=== PATIENT | female | born 2000 | race Caucasian/White ===

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

== ENCOUNTER 2019-08-17 16:30 | Emergency (ER) | payer OTHER ==
[~2019-08-17] VITALS: Ht 177.8 cm; Wt 92.3 kg
[2019-08-17] MEDS ORDERED: POTASSIUM CHLORIDE 10 MEQ SR TABLET PO ONE (17:30)
[2019-08-17 17:50] LABS: BASO # 0.1 10^3/uL (0.0-0.2); EOS # 0.1 10^3/uL (0.0-0.5); EOS % 1.5 % (0.0-3.0); HEMATOCRIT 38.4 % (36.0-47.0); LYMPH # 1.9 10^3/uL (1.5-5.0); LYMPH % 27.1 % (24.0-44.0); MEAN CORPUSCULAR HGB CONC 33.9 g/dl (32.0-36.5); MEAN CORPUSCULAR VOLUME 85.7 fl (80.0-96.0); MONO # 0.6 10^3/uL (0.0-0.8); MONO % 7.7 % (0.0-5.0); NEUTROPHILS # 4.4 10^3/uL (1.5-8.5); NEUTROPHILS % 62.1 % (36.0-66.0); PLATELET COUNT, AUTOMATED 396 10^3/uL (150-450); RED BLOOD COUNT 4.48 10^6/uL (4.00-5.40); WHITE BLOOD COUNT 7.1 10^3/uL (4.0-10.0)
[2019-08-17 18:23] LABS: CK-MB VALUE MASS 1.2 NG/ML (<3.6); CPK CREATINE PHOSPHOKINASE 116 U/L (26-192); MB/CK RELATIVE INDEX 1.03 (< OR =4); TROPONIN I < 0.02 NG/ML (< 0.10)
[2019-08-17 18:27] VITALS: BP 122/68
--- NOTE | 2019-08-17 18:35 | ECGEPIP ---
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
--- NOTE | 2019-08-17 19:45 | REP ---
Chest x-ray: Two views. History: Dyspnea and cough . Comparison study: August 13, 2013 . Findings: The lungs are well inflated and free of infiltrate. The pleural angles are sharp. The heart size is normal. Pulmonary vasculature is not increased. No significant bony abnormality is seen. Impression: Negative chest x-ray. Electronically Signed by Tj Rojas MD 08/17/2019 07:37 P
== END 2019-08-17 18:30 | disposition home or self-care (01) ==
LOC: M ED 16:30 → EDBD 16:30 → M ED 18:30
DX: R06.00 Dyspnea, unspecified (principal); E87.6 Hypokalemia; M32.9 Systemic lupus erythematosus, unspecified; M06.9 Rheumatoid arthritis, unspecified; F41.9 Anxiety disorder, unspecified; F17.210 Nicotine dependence, cigarettes, uncomplicated

== ENCOUNTER → 2019-10-22 | Outpatient (REF) | payer OTHER ==
[2019-10-22 15:39] LABS: HEMOGLOBIN 13.9 g/dl (12.0-15.5); MEAN CORPUSCULAR HGB CONC 33.9 g/dl (32.0-36.5); MEAN CORPUSCULAR VOLUME 88.4 fl (80.0-96.0); PLATELET COUNT, AUTOMATED 433 10^3/uL (150-450); RED BLOOD COUNT 4.64 10^6/uL (4.00-5.40); WHITE BLOOD COUNT 11.4 10^3/uL (4.0-10.0)
[2019-10-22 16:10] LABS: TOTAL PROTEIN,RANDOM URINE 24.4 MG/DL (0.0-12.0)
[2019-10-22 16:11] LABS: ALT/SGPT 18 U/L (12-78); BILIRUBIN,TOTAL 0.3 MG/DL (0.2-1.0); CREATININE FOR GFR 0.52 MG/DL (0.55-1.30); LDH LACTATE DEHYDROGENASE 169 U/L (84-246); URIC ACID 5.5 MG/DL (2.6-6.0)
[2019-10-22 16:32] LABS: HEPATITIS B SURFACE ANTIGEN NEGATIVE (NEGATIVE)
[2019-10-22 17:00] LABS: HIV 1&2 SCREEN CENTAUR NEGATIVE (NEGATIVE)
[2019-10-22 17:05] LABS: CHLAMYDIA DNA AMPLIFICATION NEGATIVE (NEGATIVE); GC DNA AMPLIFICATION NEGATIVE (NEGATIVE)
== END ==
LOC: M PLALAB 13:45
PROVIDERS: ATTEND Advanced Practice Midwife
DX: O99.331 Smoking (tobacco) complicating pregnancy, first trimester (principal); F17.200 Nicotine dependence, unspecified, uncomplicated

== ENCOUNTER → 2019-11-19 | Outpatient (REF) | payer OTHER ==
[2019-11-19 19:33] LABS: CHLAMYDIA DNA AMPLIFICATION NEGATIVE (NEGATIVE); GC DNA AMPLIFICATION NEGATIVE (NEGATIVE)
== END ==
LOC: M SFHCWAGY 16:52
PROVIDERS: ATTEND Advanced Practice Midwife
DX: Z11.3 Encounter for screening for infections with a predominantly sexual mode of transmission (principal)

== ENCOUNTER → 2019-12-18 | Outpatient (REF) | payer OTHER ==
[2019-12-18 14:26] LABS: ALBUMIN 3.2 GM/DL (3.2-5.2); ALT/SGPT 13 U/L (12-78); BILIRUBIN,TOTAL 0.2 MG/DL (0.2-1.0); BLOOD UREA NITROGEN 7 MG/DL (7-18); CALCIUM LEVEL 9.5 MG/DL (8.5-10.1); CARBON DIOXIDE LEVEL 22 MEQ/L (21-32); CHLORIDE LEVEL 109 MEQ/L (98-107); CREATININE FOR GFR 0.52 MG/DL (0.55-1.30); GLUCOSE, FASTING 81 MG/DL (70-100); SODIUM LEVEL 140 MEQ/L (136-145)
[2019-12-21 17:07] LABS: CARDIOLIPIN IGA ANTIBODY <9 APL U/mL (0-11); CARDIOLIPIN IGG ANTIBODY <9 GPL U/mL (0-14); CARDIOLIPIN IGM ANTIBODY <9 MPL U/mL (0-12); SSA SJOGRENS A 0.3 AI (0.0-0.9); SSB SJOGRENS B <0.2 AI (0.0-0.9)
== END ==
LOC: M PLALAB 11:47
PROVIDERS: ATTEND Advanced Practice Midwife
DX: M32.9 Systemic lupus erythematosus, unspecified (principal); O99.89 Other specified diseases and conditions complicating pregnancy, childbirth and the puerperium

== ENCOUNTER → 2020-01-20 | Outpatient (CLI) | payer OTHER ==
--- NOTE | 2020-03-05 14:44 | REP ---
OBSTETRIC SONOGRAPHY HISTORY: Supervision of for anatomy. This report was delayed due to a protracted episode of network disruption experienced by this facility. FINDINGS: Scanning through the gravid uterus demonstrates a viable single intrauterine gestation in a cephalic lie. Placenta is anterior grade 1 without evidence of placenta previa or abruption. Amniotic fluid is subjectively normal. Closed cervical length measured transabdominally is 4.1 cm. There is a 3.1 cm cystic area in the maternal left ovary. heart rate 150 beats per minute. No abnormality is observed. The following anatomic structures are identified and felt to be unremarkable: Cisterna magna, cavum septum, thalami, spine, left-sided stomach, kidneys and bladder, four chamber heart with left and right ventricular outflow tract views, three-vessel cord, abdominal wall cord insertion, upper and lower extremities, face and lips. BIOMETRY CHART: BPD 50 mm 21 weeks 2 days Head Circumference 177 mm 20 weeks 2 days Abdominal Circumference 159 mm 21 weeks 1 day Femur Length 32 mm 20 weeks 1 day Humeral Length 31 mm 20 weeks 3 days Estimated Weight 361 g 76th percentile IMPRESSION: Single live intrauterine at 20 weeks 5 days by todays composite criteria. Estimated date of delivery (LUIGI) by todays sonography 06/03/2020. MTDD
== END ==
LOC: M WHC 13:32
PROVIDERS: ATTEND Advanced Practice Midwife
DX: Z34.82 Encounter for supervision of other normal pregnancy, second trimester (principal); Z3A.20 20 weeks gestation of pregnancy

== ENCOUNTER → 2020-03-02 | Outpatient (CLI) | payer OTHER ==
[2020-03-02 17:20] LABS: HEMATOCRIT 35.5 % (36.0-47.0); HEMOGLOBIN 11.8 g/dl (12.0-15.5); MEAN CORPUSCULAR HEMOGLOBIN 31.3 pg (27.0-33.0); MEAN CORPUSCULAR HGB CONC 33.2 g/dl (32.0-36.5); MEAN CORPUSCULAR VOLUME 94.2 fl (80.0-96.0); PLATELET COUNT, AUTOMATED 377 10^3/uL (150-450); RED BLOOD COUNT 3.77 10^6/uL (4.00-5.40); WHITE BLOOD COUNT 11.5 10^3/uL (4.0-10.0)
== END ==
LOC: M PLALAB 14:01
PROVIDERS: ATTEND Advanced Practice Midwife
DX: Z34.82 Encounter for supervision of other normal pregnancy, second trimester (principal); Z36.89 Encounter for other specified antenatal screening

== ENCOUNTER → 2020-03-17 | Outpatient (REF) | payer OTHER ==
[2020-03-17 16:50] LABS: HEMATOCRIT 36.7 % (36.0-47.0); HEMOGLOBIN 12.2 g/dl (12.0-15.5); MEAN CORPUSCULAR HEMOGLOBIN 31.2 pg (27.0-33.0); MEAN CORPUSCULAR HGB CONC 33.2 g/dl (32.0-36.5); MEAN CORPUSCULAR VOLUME 93.9 fl (80.0-96.0); PLATELET COUNT, AUTOMATED 370 10^3/uL (150-450); RED BLOOD COUNT 3.91 10^6/uL (4.00-5.40); WHITE BLOOD COUNT 12.6 10^3/uL (4.0-10.0)
[2020-03-17 17:18] LABS: ALT/SGPT 7 U/L (12-78); BILIRUBIN,TOTAL 0.2 MG/DL (0.2-1.0); CREATININE FOR GFR 0.45 MG/DL (0.55-1.30); LDH LACTATE DEHYDROGENASE 127 U/L (84-246); URIC ACID 4.3 MG/DL (2.6-6.0)
[2020-03-17 17:59] LABS: TOTAL PROTEIN,RANDOM URINE 13.6 MG/DL (0.0-12.0)
== END ==
LOC: M PLALAB 13:59
PROVIDERS: ATTEND Advanced Practice Midwife
DX: O16.3 Unspecified maternal hypertension, third trimester (principal)

== ENCOUNTER → 2020-04-14 | Outpatient (CLI) | payer OTHER ==
--- NOTE | 2020-04-14 17:17 | REP ---
INDICATION: GROWTH. COMPARISON: 01/20/2020. TECHNIQUE: Real-time sonographic evaluation of the gravid uterus performed. FINDINGS: Estimated gestational age is32 weeks 1 day, EDC 06/08/2020. Today's measurements indicate appropriate growth. Presentation: Cephalic Placenta anterior, grade 2, without evidence of placenta previa. heart rate is recorded at 153 beats per minute. Amniotic fluid is subjectively normal. YVON 14.8 (normal range 8.6-24.2). Closed cervical length is measured at 3.2 cm. Biometry chart: BPD: 85 mm, 34 weeks 2 days, 82nd percentile. HC: 303 mm, 33 weeks 4 days, 73rd percentile AC: 295 mm, 33 weeks 3 days, 70th percentile Femur length: 61 mm, 31 weeks 6 days, 46th percentile HC to AC ratio: 1.03, normal range 0.95-1.14. Estimated weight: 2117g, 71st percentile. IMPRESSION: Viable single intrauterine gestation as above. <Electronically signed by German Brush > 04/14/20 [id number]
== END ==
LOC: M WHC 15:42
PROVIDERS: ATTEND Obstetrics & Gynecology
DX: Z36.4 Encounter for antenatal screening for fetal growth retardation (principal); O99.113 Other diseases of the blood and blood-forming organs and certain disorders involving the immune mechanism complicating pregnancy, third trimester; Z3A.32 32 weeks gestation of pregnancy

== ENCOUNTER → 2020-05-12 | Outpatient (REF) | payer OTHER | LOC: M PLALAB 15:30 | PROVIDERS: ATTEND Obstetrics & Gynecology | DX: Z3A.37 37 weeks gestation of pregnancy (principal) ==

== ENCOUNTER → 2020-05-12 | Outpatient (REF) | payer OTHER | LOC: M SFHCWAGY 16:47 | PROVIDERS: ATTEND Obstetrics & Gynecology | DX: Z3A.37 37 weeks gestation of pregnancy (principal) ==

== ENCOUNTER 2020-05-13 20:12 | Outpatient (CLI) | payer OTHER ==
[~2020-05-13] VITALS: Ht 180.3 cm; Wt 100.9 kg
[~2020-05-13 20:12] MED LIST changes: -ASPI81CH33 PO
[2020-05-13 20:51] VITALS: BP 141/81
== END 2020-05-13 22:33 | disposition home or self-care (01) ==
LOC: M LDO 20:12
PROVIDERS: ATTEND Obstetrics & Gynecology
DX: O47.03 False labor before 37 completed weeks of gestation, third trimester (principal); Z3A.36 36 weeks gestation of pregnancy

== ENCOUNTER → 2020-05-13 | Outpatient (CLI) | payer OTHER ==
[~2020-05-13] MED LIST changes: +ASPI81CH33 PO
--- NOTE | 2020-05-14 07:12 | REP ---
INDICATION: HYPERTENSION,GROWTH,BPP COMPARISON: 04/14/2020 TECHNIQUE: Transabdominal obstetrical ultrasound with color Doppler evaluation. FINDINGS: Examination demonstrates a single live intrauterine in cephalic presentation. motion is identified by technologist. Placenta is noted anterior and grade 3 without evidence for placenta previa or abruption. Amniotic fluid volume is normal. Cervix measures 3.1 cm in length and appears closed.. Gestational age by LMP 36 weeks 2 days with LUIGI 06/08/2020. Gestational age by current measurements 36 weeks 6 days with LUIGI 06/04/2020. FHR equals 146 beats per minute. BPD: 9.3 sent there is 37 weeks 4 days HC: 33.5 cm 30 weeks 2 days AC: 32.3 cm 36 weeks 2 days FL: 7.0 cm 36 weeks 0 days HL: 6.3 cm 36 weeks 2 days HC/AC: 1.04 Estimated weight 2965 grams (59thpercentile). YVON: 12.6 cm (7.6-24.8) Biophysical profile score: 8/8 Umbilical artery 1 SD ratio: 1.97 (1.63-3.49) Umbilical artery 2 SD ratio: 2.50 IMPRESSION: Single live advanced gestation in cephalic presentation demonstrating appropriate growth, estimated weight, amniotic fluid index, and biophysical profile. <Electronically signed by Sebastian Trejo > 05/14/20 [id number]
== END ==
LOC: M WHC 08:21
PROVIDERS: ATTEND Obstetrics & Gynecology
DX: O16.3 Unspecified maternal hypertension, third trimester (principal); Z3A.36 36 weeks gestation of pregnancy

== ENCOUNTER 2020-05-18 20:21 | Inpatient (IN) | payer OTHER ==
[~2020-05-18] VITALS: Ht 180.3 cm; Wt 102.1 kg
[2020-05-18 20:48] VITALS: BP 128/76
[2020-05-18] MEDS ORDERED: PRENTAB9 PO (21:14)
[2020-05-18] MEDS ORDERED: ASPI81CH33 PO (21:14)
--- NOTE | 2020-05-18 21:18 | HPEPDOC ---
Obstetrical History & Physical General Date of Admission May 18, 2020 at 20:21 History of Present Illness 20 yo at 37 0/7 weeks by 7 week ultrasound presents for labor induction due to gestational hypertension. She had preeclampsia with her previous pregancy. Age: 20 : 2 Term: 1 Pre-term: 0 Abortions: 0 Livin Care Care: Good Care Dating Final EDC: Jun 08, 2020 Final EDC by: 1st trimester (US) EGA at Admission: 37 Past Medical History Past Obstetrical History : Past Obstetrical History: Multigravida Past Medical History Medical History OB hx: 38 week x 1 complicated by preeclampsia med hx: SLE RA Anxiety/depression Surgical History: Denies/None Family History Significant Family History: No pertinent family hx Social History Marital Status: Family situation: Spouse/partner home Psychosocial History: Anxiety, Depression * Smoker: current smoker Alcohol: Denies Drugs: denies Allergies Coded Allergies: No Known Allergies (Unverified , 05/23/18) Medications No Active Prescriptions or Reported Meds Physical Examination Physical Examination GENERAL: Alert and oriented times three. BREAST: . ABDOMEN: Gravid and non-tender to touch. FETUS: Is vertex (VTX) by sterile vaginal examination (SVE), fetus is vertex (VTX) by [place]ley. HEART RATE: Regular rate and rhythm. LUNGS: Clear to auscultation (CTA). EXTREMITIES: No edema. No clonus. Deep tendon reflexes (DTRs) + . Laboratory Data 24H LABS Laboratory Tests 2 05/18/20 20:32: Serology Scanned Report Hepatitis B Testing Pertinent Laboratoy Data Blood Type: O+ HIV: Negative Hepatitis B: Negative Hepatitis C: Negative Rapid Plasma Reagin: Immune Rubella: Immune Group B Streptococcus: Negative Vaginal Examination Dilation: 1cm Effacement: 50% Station: -2 Cervical Consistency: Medium Cervical Position: Posterior Presentation: Cephalic presentation Assessment Variability: Moderate Accelerations: Positive Decelerations: None Tocometer Frequency: irregular Assessment/Plan Assessment Pt is a 20-year-old (G)2 para (P)1 at 37+0 weeks by 7-week ultrasound presents to Labor and Delivery for induciton due to gestational hypertension. Plan Admit and orient. 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 Group B Streptococcus (GBS) negative. Counseled on Pitocin and induction of labor (IOL). Anticipate normal spontaneous delivery (. C-S as appropriate. REDD CANO MD May 18, 2020 21:17
[2020-05-18] MEDS: miSOPROStol 50 MCG 1/2 TAB (S0191) SL SCH (21:22)
[2020-05-18 21:41] LABS: HEMATOCRIT 34.4 % (36.0-47.0); MEAN CORPUSCULAR HEMOGLOBIN 31.3 pg (27.0-33.0); MEAN CORPUSCULAR HGB CONC 34.9 g/dl (32.0-36.5); MEAN CORPUSCULAR VOLUME 89.8 fl (80.0-96.0); PLATELET COUNT, AUTOMATED 375 10^3/uL (150-450); RED BLOOD COUNT 3.83 10^6/uL (4.00-5.40); WHITE BLOOD COUNT 12.3 10^3/uL (4.0-10.0)
[2020-05-18 22:21] VITALS: BP 121/79
[2020-05-19] VITALS (34 sets, daily range): BP systolic 111–195; BP diastolic 60–101
[2020-05-19] MEDS: miSOPROStol 50 MCG 1/2 TAB (S0191) SL SCH ×2 (01:42→05:51)
[2020-05-19] MEDS ORDERED: ACETAMINOPHEN 500 MG TAB PO PRN (08:15)
[2020-05-19] MEDS ORDERED: OXYTOCIN DRIP 30 UNITS in IV 1 EA IV SCH (10:00)
[2020-05-19] MEDS: LR 1,000 ML IV SCH ×2 (10:13→18:29)
[2020-05-19] MEDS ORDERED: PROMETHAZINE INJ 25 MG/ML VIAL (J2550) IV ONE (19:30)
[2020-05-19] MEDS ORDERED: BUTORPHANOL 2 MG/ML INJ (J0595) IV ONE (19:30)
[2020-05-19] MEDS ORDERED: FENTANYL 2MCG/ML ROPIVACAINE 0.2% IN 0.9% NACL 100ML IVBAG As Ordered ONE (23:13)
[2020-05-19] MEDS ORDERED: ONDANSETRON 4MG/2ML VIAL IV PRN (23:50)
[2020-05-19] MEDS ORDERED: FENTANYL/ROPIVACAINE/NACL BAG 100 ML EPIDURAL SCH (23:50)
[2020-05-19] MEDS ORDERED: EPIDURAL COMMENT XX SCH (23:50)
[2020-05-19] MEDS ORDERED: NALOXONE INJ 0.4MG/1ML VIAL (J2310 PER 1MG) IV PRN (23:50)
[2020-05-19] MEDS ORDERED: EPIDURAL/PCA KEYS XX PRN (23:50)
[2020-05-19] MEDS ORDERED: LACTATED RINGER'S 1000 ML IV PRN (23:50)
[2020-05-19] MEDS ORDERED: ePHEDrine SULFATE 25 MG/5 ML(5MG/ML) SYRINGE IV PRN (23:50)
[2020-05-19] MEDS ORDERED: diphenhydrAMINE 50MG/ML VIAL (J1200) IV PRN (23:50)
[2020-05-19] MEDS ORDERED: REFRIGERATOR IV KEYS XX PRN (23:50)
[2020-05-20 00:04] VITALS: BP 144/85
[2020-05-20 00:11] VITALS: BP 135/77
[2020-05-20 00:15] VITALS: BP 138/85
[2020-05-20] MEDS ORDERED: OXYTOCIN DRIP 30 UNITS in IV 1 EA IV SCH (01:39)
[2020-05-20] MEDS ORDERED: IBUPROFEN 600MG TAB PO PRN (01:45)
[2020-05-20] MEDS ORDERED: DOCUSATE SODIUM 100MG CAPSULE PO PRN (01:45)
[2020-05-20] MEDS ORDERED: BENZOCAINE 20% HEMORRHOIDAL OINTMENT 28GM TUBE TOP PRN (01:45)
[2020-05-20] MEDS ORDERED: MEASLES,MUMPS,RUBELLA VACCINE INJ (MMR-II) (90707) SC SCH (01:45)
[2020-05-20] MEDS ORDERED: ACETAMINOPHEN TAB 650MG DOSE (2X325MG) PO PRN (01:45)
[2020-05-20] MEDS ORDERED: IBUPROFEN 800 MG TAB PO PRN (01:45)
[2020-05-20] MEDS ORDERED: ACETAMINOPHEN 500 MG TAB PO PRN (01:45)
[2020-05-20] MEDS ORDERED: RHOGAM 300 MCG (1500 IU) INJ (J2790) IM SCH (01:45)
[2020-05-20 03:05] VITALS: BP 135/74
[2020-05-20 06:00] VITALS: BP 127/59
--- NOTE | 2020-05-20 08:08 | DN ---
DELIVERY NOTE DATE OF SERVICE: 05/20/2020 Lucina is a 20-year-old, 2, para 2-0-0-2 now, who is admitted to labor and delivery for induction of labor due to gestational hypertension. Misoprostol, Cook's catheter, and IV Pitocin was used and labor did ensue. The patient utilized IV pain medications and an epidural for her labor coping. She reached full dilation at 0056 hours. She pushed to a normal spontaneous vaginal delivery of a live male in occiput anterior (OA) position with restitution to left occiput anterior (LOT) position at 0106 hours. There was no nuchal cord. The shoulders delivered with gentle downward traction and the corpus immediately followed. The was placed on the maternal abdomen crying and active. Mouth and nares were bulb suctioned. The cord was clamped times two once pulsations ceased and cut by the father of the baby under my direction. A spontaneous expulsion of an intact placenta with a three-vessel cord by Echols mechanism was at 0120 hours. Uterine hemostasis achieved with IV Pitocin. Rapid infusion and uterine fundal massage. Estimated blood 300 mL. Perineum and vagina inspected, noted to be intact. male weighed 3170 grams, 7 pounds 0 ounces, scores 8 and 9. Mom is going to breastfeed. The family have named their son Isaiah. At the close of delivery, lap counts and instrument counts were correct and verified.
[2020-05-20] MEDS: PRENATAL VITAMINS CHEWABLE TABLET PO SCH (08:48)
[2020-05-20 18:26] VITALS: BP 142/70
[2020-05-21 06:00] VITALS: BP 142/82
[2020-05-21] MEDS: PRENATAL VITAMINS CHEWABLE TABLET PO SCH (08:00)
[2020-05-21 17:46] VITALS: BP 151/90
--- NOTE | 2020-05-21 20:27 | IPNPDOC ---
Text Note Date of Service The patient was seen on 05/21/20. NOTE This note was created in error. VS,Fishbone, I+O VS, Fishbone, I+O Vital Signs Date Time Temp Pulse Resp B/P (MAP) Pulse Ox O2 Delivery O2 Flow Rate FiO2 05/21/20 17:46 97.8 116 20 151/90 (110) 05/19/20 07:52 99 Room Air Soniya Cartagena CNM May 21, 2020 20:23
[2020-05-22 06:00] VITALS: BP 132/82
[2020-05-22] MEDS: PRENATAL VITAMINS CHEWABLE TABLET PO SCH (10:18)
== END 2020-05-22 12:10 | disposition home or self-care (01) | DRG 560 ==
LOC: EEVIPCON 20:21 → M LDI 20:21 → M OBS 05-20 03:03
PROVIDERS: ADMIT Specialist; ATTEND Advanced Practice Midwife
PROC: 3E0P7GC Introduction of Other Therapeutic Substance into Female Reproductive, Via Natural or Artificial Opening (ICD-10-PCS; 2020-05-18)
PROC: 10E0XZZ Delivery of Products of Conception, External Approach (ICD-10-PCS; principal; 2020-05-20)
DX: O13.4 Gestational [pregnancy-induced] hypertension without significant proteinuria, complicating childbirth (principal); Z3A.37 37 weeks gestation of pregnancy; Z37.0 Single live birth

== ENCOUNTER 2020-07-04 19:55 | Emergency (ER) | payer OTHER ==
[~2020-07-04] VITALS: Ht 182.9 cm; Wt 97.6 kg
[~2020-07-04 19:55] MED LIST changes: +ASPI81CH33 PO
[2020-07-04] MEDS ORDERED: NS 1,000 ML IV ONE (21:00)
[2020-07-04 21:22] LABS: BASO # 0.1 10^3/uL (0.0-0.2); EOS # 0.3 10^3/uL (0.0-0.5); EOS % 3.8 % (0.0-3.0); HEMATOCRIT 40.7 % (36.0-47.0); HEMOGLOBIN 13.1 g/dl (12.0-15.5); LYMPH # 2.2 10^3/uL (1.5-5.0); LYMPH % 26.1 % (24.0-44.0); MEAN CORPUSCULAR HEMOGLOBIN 29.5 pg (27.0-33.0); MEAN CORPUSCULAR HGB CONC 32.2 g/dl (32.0-36.5); MEAN CORPUSCULAR VOLUME 91.7 fl (80.0-96.0); MONO # 0.4 10^3/uL (0.0-0.8); MONO % 4.9 % (0.0-5.0); NEUTROPHILS # 5.3 10^3/uL (1.5-8.5); NEUTROPHILS % 63.6 % (36.0-66.0); PLATELET COUNT, AUTOMATED 369 10^3/uL (150-450); RED BLOOD COUNT 4.44 10^6/uL (4.00-5.40); WHITE BLOOD COUNT 8.4 10^3/uL (4.0-10.0)
[2020-07-04 21:50] LABS: CK-MB VALUE MASS < 1.0 NG/ML (<3.6); CPK CREATINE PHOSPHOKINASE 105 U/L (26-192); MB/CK RELATIVE INDEX 0.95 (< OR =4); TROPONIN I < 0.02 NG/ML (< 0.10)
[2020-07-04] MEDS ORDERED: ISOVUE-370 76% 100ML VIAL As Ordered ONE (22:10)
--- NOTE | 2020-07-04 22:41 | REPVR ---
PROCEDURE INFORMATION: Exam: CT Angiography Chest With Contrast Exam date and time: 07/04/2020 10:09 PM Age: 20 years old Clinical indication: Chest pain; Additional info: Chest pain, SOB post R/O pe TECHNIQUE: Imaging protocol: Computed tomographic angiography of the chest with intravenous contrast. 3D rendering (Not supervised by radiologist): MIP and/or 3D reconstructed images were created by the technologist. Radiation optimization: All CT scans at this facility use at least one of these dose optimization techniques: automated exposure control; mA and/or kV adjustment per patient size (includes targeted exams where dose is matched to clinical indication); or iterative reconstruction. Contrast material: ISOVUE 370; Contrast volume: 75 ml; Contrast route: INTRAVENOUS (IV); COMPARISON: MN Chest, 2 view PA, Lat 08/17/2019 5:10 PM FINDINGS: No focal pulmonary artery filling defect to suggest acute pulmonary embolus. No thoracic aortic aneurysm or dissection. Residual thymic tissue is present in the anterior mediastinum. No enlarged mediastinal lymph nodes. No pleural effusion or pneumothorax. Pulmonary vascular/interstitial pattern does not suggest active pulmonary edema. No overt cardiac enlargement or abnormal volume of pericardial fluid. No suspicious lung mass or air space process. No central endobronchial lesion. Bony structures show no acute fracture or destructive process. No asymmetric abnormality of the extrathoracic soft tissues. IMPRESSION: No evidence of acute pulmonary embolus. No other acute or concerning focal intrathoracic abnormality. Electronically signed by: Cristiano Aldana On 07/04/2020 22:40:54 PM
[2020-07-04 23:10] VITALS: BP 140/82
--- NOTE | 2020-07-05 07:05 | ECGEPIP ---
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 Order Number: [id number] Reading MD: Renny Quesada Measurements Intervals [place] Rate: 70 P: 34 DC: 143 QRS: 26 QRSD: 98 T: 5 QT: 384 QTc: 415 Interpretive Statements SINUS RHYTHM WITH SINUS ARRHYTHMIA POSSIBLE RIGHT VENTRICULAR CONDUCTION DELAY NONSPECIFIC T WAVE ABNORMALITY(S) SIMILAR TO 08/17/19 Electronically Signed on 07-05-2020 7:05:00 EST by Renny Quesada
== END 2020-07-04 23:15 | disposition home or self-care (01) ==
LOC: M ED 19:55
DX: R07.89 Other chest pain (principal); F41.9 Anxiety disorder, unspecified; I49.9 Cardiac arrhythmia, unspecified; R94.31 Abnormal electrocardiogram [ECG] [EKG]; F33.9 Major depressive disorder, recurrent, unspecified; F17.200 Nicotine dependence, unspecified, uncomplicated; Z83.2 Family history of diseases of the blood and blood-forming organs and certain disorders involving the immune mechanism
CPT/HCPCS: 71275; 80047; 82550; 82553; 84702; 85025; 93005; 96360; 96361; 99284; Q9967

== ENCOUNTER → 2020-08-24 | Outpatient (REF) | payer OTHER | LOC: M SFHCWAGY 12:46 | PROVIDERS: ATTEND Advanced Practice Midwife | DX: N34.3 Urethral syndrome, unspecified (principal); Z11.3 Encounter for screening for infections with a predominantly sexual mode of transmission ==

== ENCOUNTER 2021-09-23 19:07 | Emergency (ER) | payer OTHER ==
[~2021-09-23] VITALS: Ht 180.3 cm; Wt 106.9 kg
[2021-09-23] MEDS ORDERED: BACTRIM 160MG/800MG DS TAB PO ONE (20:50)
[2021-09-23] MEDS ORDERED: BACT800T5 PO (20:51)
[2021-09-23 21:16] VITALS: BP 120/68
== END 2021-09-23 21:18 | disposition home or self-care (01) ==
LOC: M ED 19:07
DX: N61.1 Abscess of the breast and nipple (principal); F33.9 Major depressive disorder, recurrent, unspecified; F41.9 Anxiety disorder, unspecified; M32.9 Systemic lupus erythematosus, unspecified; F12.20 Cannabis dependence, uncomplicated; F17.210 Nicotine dependence, cigarettes, uncomplicated

== ENCOUNTER → 2023-07-02 | Outpatient (CLI) | payer OTHER ==
[~2023-07-02] MED LIST changes: +BACT800T5 PO
[2023-07-02 09:42] LABS: BASO # 0.1 10^3/uL (0.0-0.2); BASO % 0.6 % (0.0-1.0); EOS # 0.4 10^3/uL (0.0-0.5); EOS % 4.5 % (0.0-3.0); HEMATOCRIT 41.3 % (36.0-47.0); LYMPH # 2.7 10^3/uL (1.5-5.0); LYMPH % 32.4 % (24.0-44.0); MEAN CORPUSCULAR HEMOGLOBIN 29.6 pg (27.0-33.0); MEAN CORPUSCULAR HGB CONC 33.9 g/dl (32.0-36.5); MEAN CORPUSCULAR VOLUME 87.3 fl (80.0-96.0); MONO # 0.4 10^3/uL (0.0-0.8); MONO % 4.8 % (2.0-8.0); NEUTROPHILS # 4.7 10^3/uL (1.5-8.5); NEUTROPHILS % 56.5 % (36.0-66.0); PLATELET COUNT, AUTOMATED 347 10^3/uL (150-450); RED BLOOD COUNT 4.73 10^6/uL (4.00-5.40); WHITE BLOOD COUNT 8.3 10^3/uL (4.0-10.0)
[2023-07-02 09:57] LABS: ERYTHROCYTE SEDIMENTATION RATE 34 mm/hr (0-20)
[2023-07-02 10:06] LABS: URIC ACID 7.8 MG/DL (3.1-7.8)
[2023-07-02 10:09] LABS: ALBUMIN 3.9 G/DL (3.2-5.2); ALKALINE PHOSPHATASE 81 U/L (46-116); ALT/SGPT 23 U/L (7.0-40); AST/SGOT 26 U/L (<34); BILIRUBIN,TOTAL 0.3 MG/DL (0.3-1.2); BLOOD UREA NITROGEN 12 MG/DL (9-23); CALCIUM LEVEL 9.5 MG/DL (8.5-10.1); CARBON DIOXIDE LEVEL 28 MMOL/L (20-31); CHLORIDE LEVEL 108 MMOL/L (98-107); CHOLESTEROL LEVEL 133 MG/DL (<200); CHOLESTEROL RISK RATIO 4.34 (<5); CREATININE FOR GFR 0.61 MG/DL (0.55-1.30); FREE T4 0.93 NG/DL (0.89-1.76); GLOMERULAR FILTRATION RATE > 60.0 (>60); GLUCOSE, FASTING 93 MG/DL (60-100); HDL CHOLESTEROL 30.6 MG/DL (>40); LDL CHOLESTEROL 47.4 MG/DL (<100); NON-HDL-C 102.4 MG/DL; POTASSIUM SERUM 4.2 MMOL/L (3.5-5.1); RHEUMATOID FACTOR QUANT < 3.5 IU/ML (<14); SODIUM LEVEL 138 MMOL/L (136-145); THYROID STIMULATING HORMONE 2.665 uIU/ML (0.55-4.78); TOTAL PROTEIN 7.9 G/DL (5.7-8.2); TRIGLYCERIDES LEVEL 275 MG/DL (<150)
[2023-07-02 10:10] LABS: FOLATE 19.7 NG/ML (>5.4); HEMOGLOBIN A1c 5.2 % (4.0-6.0); TOTAL 25(OH) VITAMIN D 18.4 NG/ML (20.0-100.0); VITAMIN B12 LEVEL 461 PG/ML (211-911)
== END ==
LOC: M LAB 08:36
PROVIDERS: ATTEND Physician Assistant
DX: M06.9 Rheumatoid arthritis, unspecified (principal); F41.9 Anxiety disorder, unspecified

== ENCOUNTER → 2023-11-02 | Outpatient (CLI) | payer OTHER | LOC: M EKG 16:08 | PROVIDERS: ATTEND Physician Assistant | DX: E66.09 Other obesity due to excess calories (principal); Z68.35 Body mass index [BMI] 35.0-35.9, adult ==

== ENCOUNTER → 2024-12-10 | Outpatient (CLI) | payer OTHER ==
[2024-12-10 14:33] LABS: TOTAL PROTEIN,RANDOM URINE 20.3 MG/DL (0.0-14.0)
[2024-12-10 15:08] LABS: Trichomonas vaginalis (AMP) NOT DETECTED (NEGATIVE)
[2024-12-10 15:32] LABS: GC DNA AMPLIFICATION NEGATIVE (NEGATIVE)
[2024-12-10 15:48] LABS: PLATELET COUNT, AUTOMATED 341 10^3/uL (150-450)
[2024-12-10 16:19] LABS: LDH LACTATE DEHYDROGENASE 165 U/L (120-246)
[2024-12-10 16:20] LABS: ALT/SGPT < 9 U/L (7.0-40); AST/SGOT 19 U/L (<34); CREATININE FOR GFR 0.50 MG/DL (0.55-1.30); GLOMERULAR FILTRATION RATE > 90.0 (>60)
[2024-12-10 16:54] LABS: HIV 1&2 SCREEN NEGATIVE (NEGATIVE)
[2024-12-10 17:02] LABS: HEPATITIS C VIRUS ABY INDEX 0.05 INDEX (<0.8)
== END ==
LOC: M PLALAB 11:45
PROVIDERS: ATTEND Advanced Practice Midwife
DX: O09.291 Supervision of pregnancy with other poor reproductive or obstetric history, first trimester (principal); O26.891 Other specified pregnancy related conditions, first trimester; M32.9 Systemic lupus erythematosus, unspecified; Z3A.11 11 weeks gestation of pregnancy

== ENCOUNTER → 2024-12-10 | Outpatient (CLI) | payer OTHER | LOC: M PLALAB 11:41 | PROVIDERS: ATTEND Obstetrics & Gynecology | DX: Z13.79 Encounter for other screening for genetic and chromosomal anomalies (principal); O09.291 Supervision of pregnancy with other poor reproductive or obstetric history, first trimester; O99.891 Other specified diseases and conditions complicating pregnancy; O26.891 Other specified pregnancy related conditions, first trimester; M32.9 Systemic lupus erythematosus, unspecified; Z3A.11 11 weeks gestation of pregnancy ==

== ENCOUNTER → 2024-12-25 | Outpatient (CLI) | payer OTHER | LOC: M PLALAB 10:21 | PROVIDERS: ATTEND Obstetrics & Gynecology | DX: Z34.80 Encounter for supervision of other normal pregnancy, unspecified trimester (principal) ==

== ENCOUNTER → 2025-02-12 | Outpatient (CLI) | payer OTHER | LOC: M WHC 10:44 | PROVIDERS: ATTEND Nurse Practitioner Family | DX: Z34.80 Encounter for supervision of other normal pregnancy, unspecified trimester (principal) ==

== ENCOUNTER → 2025-03-16 | Outpatient (CLI) | payer OTHER | LOC: M WHC 08:16 | PROVIDERS: ATTEND Nurse Practitioner Family | DX: Z34.82 Encounter for supervision of other normal pregnancy, second trimester (principal); Z3A.25 25 weeks gestation of pregnancy ==

== ENCOUNTER → 2025-04-09 | Outpatient (CLI) | payer OTHER ==
[2025-04-09 14:07] LABS: PLATELET COUNT, AUTOMATED 350 10^3/uL (150-450)
[2025-04-09 14:11] LABS: GLUCOSE CHALLENGE TEST 1 HOUR 136 MG/DL (LESS THAN 140)
[2025-04-09 14:40] LABS: HIV 1&2 SCREEN NEGATIVE (NEGATIVE)
[2025-04-09 14:48] LABS: HEPATITIS C VIRUS ABY INDEX < 0.02 INDEX (<0.8)
== END ==
LOC: M PLALAB 08:54
PROVIDERS: ATTEND Advanced Practice Midwife
DX: Z34.82 Encounter for supervision of other normal pregnancy, second trimester (principal)

== ENCOUNTER → 2025-04-16 | Outpatient (REF) | payer OTHER ==
[2025-04-16 15:31] LABS: Trichomonas vaginalis (AMP) NOT DETECTED (NEGATIVE)
[2025-04-16 15:54] LABS: GC DNA AMPLIFICATION NEGATIVE (NEGATIVE)
== END ==
LOC: M SFHCWAGY 12:57
PROVIDERS: ATTEND Advanced Practice Midwife
DX: Z34.82 Encounter for supervision of other normal pregnancy, second trimester (principal)

== ENCOUNTER → 2025-05-27 | Outpatient (REF) | payer OTHER | LOC: M PLALAB 10:21 | PROVIDERS: ATTEND Obstetrics & Gynecology | DX: O09.893 Supervision of other high risk pregnancies, third trimester (principal); Z3A.36 36 weeks gestation of pregnancy ==